=== PATIENT | male | born 1930 | race Hispanic/Latino ===

== ENCOUNTER 2017-04-06 11:43 | Outpatient (CLI) | payer MEDICARE ==
[2017-04-06 12:38] LABS: BUN/Creatinine Ratio 19.28; Calcium 8.8 mg/dL (8.4-10.2); Chloride 103.5 mmol/L (98-107); Potassium 4.9 mmol/L (3.6-5.0)
[2017-04-06] MEDS ORDERED: NACL ONE (12:44)
--- NOTE | 2017-04-08 13:52 | Cat Scan Report ---
CTA NECK INDICATION: Angina pectoris. Occlusion and stenosis of left carotid artery. COMPARISON: None similar. FINDINGS: CTA neck performed utilizing IV contrast. Axial, sagittal, coronal and MIP reconstructions obtained. Patent aortic arch with atherosclerotic changes. Normal major branching pattern. Atherosclerotic changes with approximately 65-70% stenosis at the origin of the right subclavian artery origin as on axial series 2, images 20-25. Approximately 40-50% stenosis at the origin of left common carotid artery may also be present as on axial image 12. Diffuse remainder vascular atherosclerotic changes also seen. Patent bilateral common carotid arteries. Moderate to severe carotid bulb atherosclerotic calcifications noted bilaterally. RIGHT: Approximately 60% stenosis at the right carotid bulb. Mild atherosclerotic changes and narrowing along the right proximal ICA as well. Remainder ICA and ECA appear unremarkable. LEFT: Severe, complete occlusion at the carotid bulb just past the ECA origin noted. Proximal ICA occluded for approximately 2 cm craniocaudal extent with subsequent reconstitution, though remainder left ICA also demonstrates approximately 60-70% asymmetrically smaller caliber as compared to the right ICA. Patent bilateral vertebral arteries, though right predominantly continues as the basilar artery while the left vertebral artery tapers distally with its branches likely contributing to the cerebellar supply. Age-appropriate imaged intracranial appearance with ICA calcifications. Bilateral cataract surgery. A 5-6 mm leftward nasal septal spur and slight deviation. Small radiopaque dental fillings and few missing teeth noted. Mild cervical spine degenerative changes. Sternotomy wires. CONCLUSION: 1. Diffuse bilateral atherosclerotic changes, greatest about the carotid bulbs. Severe, complete occlusion of the left proximal ICA for approximately 2 cm craniocaudal segment from the carotid bulb noted with subsequent reconstitution distally, though with asymmetrically smaller caliber, as described. Approximately 50-60% stenosis on the right and along the right proximal ICA noted as well. 2. Various other findings, as above. I phoned the above results to Dr. Markham, 1:45 PM, 04/08/2017. Thank you for the opportunity to participate in this patient's care.
== END 2017-04-06 11:44 | disposition home or self-care (01) ==
LOC: CT 11:43
PROVIDERS: ATTEND Radiology Diagnostic Radiology
DX: I65.22 Occlusion and stenosis of left carotid artery (principal); N18.1 Chronic kidney disease, stage 1; I20.9 Angina pectoris, unspecified; I70.221 Atherosclerosis of native arteries of extremities with rest pain, right leg
CPT/HCPCS: 36415; 70498; 80048; Q9967

== ENCOUNTER 2017-05-20 05:58 | Inpatient (IN) | payer MEDICARE ==
[2017-05-13 13:40] LABS: Basophils % (Auto) 0.4 % (0.0-1.8); Eosinophils % (Auto) 2.1 % (0.0-4.3); Hematocrit 31.1 % (35.5-45.6); Hemoglobin 11.3 gm/dl (11.8-15.2); Mean Corpuscular HGB Conc 36 % (32-34); Mean Corpuscular Hemoglobin 32 pg (28-32); Mean Corpuscular Volume 88 fl (84-94); Platelet Count 195 K/mm3 (140-440); Red Blood Count 3.52 M/mm3 (3.65-5.03); Red Cell Distribution Width 13.9 % (13.2-15.2); White Blood Count 6.1 K/mm3 (4.5-11.0)
[2017-05-13 13:49] LABS: INR 1.06 (0.87-1.13)
[2017-05-13 13:52] LABS: BUN/Creatinine Ratio 17.64; Calcium 9.2 mg/dL (8.4-10.2); Chloride 103.8 mmol/L (98-107); Potassium 5.4 mmol/L (3.6-5.0)
[~2017-05-20 05:58] MED LIST: GELFOAM TP ONE; HEPARIN 10,000 UNITS/10 ML IV ONE; MARCAINE-EPI 0.5%-1:200,000 INFILTRATI ONE; NACL 0.9% 500 ML IV ONE; NACL 0.9% IV ONE; RIFADIN IV ONE; THROMBIN (BOVINE) TP ONE; XYLOCAINE 1% 20 mL INFILTRATI ONE
[2017-05-20] MEDS ORDERED: NACL 0.9% 1000 ML 1,000 ML IV SCH (06:00)
[2017-05-20] MEDS ORDERED: ANCEF/STERILE WATER 2 GM/20 ML 2 GM/20 ML SYRINGE IV NR (06:00)
[2017-05-20] MEDS ORDERED: NACL BACTERIOSTATIC INFILTRATI ONE (06:34)
[2017-05-20] MEDS ORDERED: HEPARIN 10,000 UNITS/10 ML ONE (07:17)
[2017-05-20] MEDS ORDERED: GELFOAM TP ONE ×2 (07:17→10:15)
[2017-05-20] MEDS ORDERED: MARCAINE-EPI 0.5%-1:200,000 INFILTRATI ONE ×2 (07:17→11:00)
[2017-05-20] MEDS ORDERED: NACL 0.45% 500 ML IV ONE (07:18)
[2017-05-20] MEDS ORDERED: NACL ONE (07:18)
[2017-05-20] MEDS ORDERED: PAPAVERINE ONE (07:19)
[2017-05-20] MEDS ORDERED: NITROGLYCERIN SYRINGE 0 ML ONE (07:19)
[2017-05-20] MEDS ORDERED: PROTAMINE SULFATE ONE ×2 (07:20→11:42)
[2017-05-20] MEDS ORDERED: RIFADIN ONE ×2 (07:21→07:22)
[2017-05-20] MEDS ORDERED: THROMBIN (BOVINE) TP ONE ×2 (07:22→10:15)
[2017-05-20] MEDS ORDERED: XYLOCAINE 1% 20 mL ONE (07:23)
[2017-05-20] MEDS ORDERED: XYLOCAINE MPF 2% ONE (07:24)
[2017-05-20] MEDS ORDERED: SUBLIMAZE ONE ×2 (07:24→08:55)
[2017-05-20] MEDS ORDERED: ZEMURON IV ONE (07:24)
[2017-05-20] MEDS ORDERED: XYLOCAINE 1% MPF 5 mL ONE (07:24)
[2017-05-20] MEDS ORDERED: DIPRIVAN 10 MG/ML IV ONE (07:26)
[2017-05-20] MEDS ORDERED: DILAUDID IV PRN (07:28)
[2017-05-20] MEDS ORDERED: PEPCID PO NR (07:28)
[2017-05-20] MEDS ORDERED: VERSED IV NR (07:28)
--- NOTE | 2017-05-20 07:29 | Anesthesia Consultation ---
Anesthesia Consult and Med Hx Date of service: 05/20/17 - Airway Anesthetic Teeth Evaluation: Poor, Chipped (TOP FRONT) ROM Head & Neck: Adequate Mental/Hyoid Distance: Adequate Mallampati Class: Class II Intubation Access Assessment: Probably Good - Pulmonary Exam CTA: Yes - Cardiac Exam Cardiac Exam: RRR - Pre-Operative Health Status ASA Pre-Surgery Classification: ASA3 Proposed Anesthetic Plan: General - Pulmonary Hx Smoking: No Hx Asthma: No Hx Sleep Apnea: No - Cardiovascular System Hx Hypertension: Yes (x 10 yrs or more) Hx Coronary Artery Disease: Yes (CABG 1999) Hx Peripheral Vascular Disease: Yes (LEG STENTS) - Central Nervous System 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
--- NOTE | 2017-05-20 07:29 | Anesthesia Day of Surgery ---
Anesthesia Day of Surgery - Day of Surgery Patient Examined: Yes Patient H&P Reviewed: Yes Patient is NPO: Yes Beta Blockers: Yes Cardiac Clearance: Yes
[2017-05-20] MEDS ORDERED: XYLOCAINE 1% 20 mL INFILTRATI ONE (08:00)
[2017-05-20] MEDS ORDERED: ZOFRAN IV PRN (08:00)
[2017-05-20] MEDS ORDERED: ePHEDrine SULFATE ONE (08:08)
--- NOTE | 2017-05-20 08:45 | Admit Criteria Form ---
Admission Criteria Documentation: AMBULATORY SURGERY EXCEPTION CRITERIA Ambulatory Surgery Exception Criteria ( Place 'X' for any and all applicable criteria): Surgery or procedure performed on ambulatory basis may require inpatient stay for[A] ANY ONE of the following(1)(2)(3)(4)(5)(6)(7)(8)(9): [X] I. A preoperative situation, condition, or finding that warrants inpatient stay as indicated by ANY ONE of the following: [] a) Inpatient care needed because of severity of a disease or condition rather than the surgery (eg, severe cardiac or respiratory disease, severe infection) (15) (16 ) (17) (18) [] b) Emergent procedure (eg, angioplasty for acute ischemia)(19) [] c) Complex surgical approach or situation as indicated by ANY ONE of the following(3): [] i) Open approach needed instead of usual endoscopic, transcatheter, or other less invasive procedure [] ii) Difficult approach because of previous operation [] iii) Airway monitoring required after open neck procedures(20)(21) [] iv) Large mass requiring unusually extensive dissection [] v) Additional complicating feature requiring inpatient care (eg, drain management)(22(23): [X] d) Major surgery in a pt with high anesthetic risk as indicated by ANY ONE of the following (2)(3)(5)(7)(8): [X] i) ASA risk class III or higher (severe systemic disease impairing function) [D] [] ii) Advanced age (eg, older than 85 years)(14)(24) [] iii) Symptomatic heart failure(25) [] iv) Symptomatic asthma or COPD(8)(21) [] v) Morbid obesity with hemodynamic or respiratory problems(20)( 21)(26)(27) [] vi) Obstructive sleep apnea(20)(21) [] vii) Former premature infants who are younger than 60 weeks [] viii) High risk for severe postoperative abnormalities (eg, severe postoperative hypocalcemia after parathyroidectomy for severe hyperparathyroidism)(27)( 28) [] ix) Unstable angina(25) [] e) Drug-related risk requiring inpatient stay as indicated by ANY ONE of the following(5)(10)(14)(32)(33) [] i) Procedure requires discontinuing drugs or other therapy (eg , antiarrhythmic medication, antiseizure medication), which necessitates inpatient observation or treatment.(18)(31) [] ii) Major surgery and high risk drug use as indicated by ANY ONE of the following: [] 1) Active abuse of cocaine or similar drug [] 2) Monoamine oxidase inhibitor use [] 3) Other drug identified as posing risk [] f) Inadequate outpatient care situation as indicated by ANY ONE of the following(5)(10)(14)(32)(33) [] i) Patient lives remote from medical facility and procedure has urgent complication potential, and temporary nearby residence cannot be arranged [] ii) Patient will have postprocedure incapacitation and inadequate assistance at home, or alternative level of care cannot be arranged. [] iii) Patient will have long general anesthesia or procedure side effect resolution time, and competent person to stay with patient on first postoperative night at home or alternative level of care cannot be arranged. []iv) Other inadequate outpatient situation that cannot be handled by other means [] II. A perioperative event, condition, or finding that warrants inpatient stay as indicated by ANY ONE of the following (1)(2)(3): [] a) Inadequate physiologic recovery: cardiovascular, respiratory, or hemodynamic status not normal or near preoperative baseline(18) [] b) Hemodynamic instability [] c) Patient not alert with near normal or baseline mental status [] d) Temperature not normal or as expected and not appropriate for outpatient treatment of condition [] e) Ambulatory or appropriate activity level status not yet achieved post procedure [E](34)(35)(36) [] f) Operative site not appropriate (eg, unexpected or excessive drainage or bleeding) [] g) Postoperative effects not resolved or adequately managed (eg, significant pain or vomiting not appropriate for outpatient or next level of care)(10)(12) [] h) Complicating features requiring inpatient care as indicated by ANY ONE of the following(37): [] i) Severe complications of procedure (eg, bowel injury, airway compromise, vascular injury,severe hemorrhage) [] ii) Extensive (eg, dissection far beyond usual scope of procedure ) or prolonged (eg, 120 minutes beyond usual) surgery needed requiring inpatient postoperative care [] iii) Conversion to an open or complex procedure that requires inpatient care (eg, open vs laparoscopic cholecystectomy, abdominal vs vaginal hysterectomy)(38) [] iv) Comorbid condition or test result identified during or post procedure that requires inpatient care (7) [] v) Malignant hyperthermia(30) [] vi) Other complicating feature requiring inpatient care(22)(23) Inpatient stay may be needed until ALL of the following are present (1)(2)(3)(4) (5)(6)(10)(14)(33)(40): []a) Physiologic recovery: cardiovascular, respiratory, and hemodynamic status normal or near preoperative baseline []b) Hemodynamic stability []c) Patient alert, with near normal or baseline mental status []d) Temperature appropriate: patient afebrile or temperature appropriate for outpt treatment of condition []e) Activity level appropriate: ambulatory or appropriate activity level post procedure []f) Operative site appropriate as indicated by ALL of the following: []i) Site dry or with expected drainage []ii) Any blood noted is as expected for procedure. []g) Postoperative effects resolved or managed as indicated by ALL of the following: []i) Pain management appropriate for outpatient (or next level of) care(10) []ii) Minimal nausea and vomiting: if present, successfully treated with oral medication(12) []iii) Headache, dizziness, or drowsiness (if present) are mild. []h) Voiding status acceptable as indicated by ANY ONE of the following: []i) Voiding spontaneously []ii) No voiding but instructions given for follow-up in 6 to 8 hours []iii) Urinary catheter in place, and instructions given for follow-up []i) Complicating features requiring inpatient care manageable at a lower level of care(37) []j) Comorbid conditions manageable at a lower level of care(37) The original [employer] content created by [employer] has been revised. The portions of the content which have been revised are identified through the use of italic text or in bold, and [facility] [employer] has neither reviewed nor approved the modified material. All other unmodified content is copyright [employer]. Please see references footnoted in the original [employer] edition 2016 Admission Criteria Met: Yes
[2017-05-20] MEDS ORDERED: HEPARIN 10,000 UNITS/10 ML IV ONE (09:21)
[2017-05-20] MEDS ORDERED: NACL 0.9% 500 ML IV ONE (09:21)
[2017-05-20] MEDS ORDERED: NACL 0.9% IV ONE (09:54)
[2017-05-20] MEDS ORDERED: RIFADIN IV ONE (09:54)
[2017-05-20] MEDS ORDERED: NACL 0.9% 1000 ML 1,000 ML ONE ×2 (10:47→11:01)
[2017-05-20] MEDS ORDERED: NEO SYNEPHRINE/NS Syringe(OR USE) IV ONE (11:00)
[2017-05-20] MEDS ORDERED: DECADRON ONE (11:01)
[2017-05-20] MEDS ORDERED: ZOFRAN ONE (11:01)
[2017-05-20] MEDS ORDERED: NORCO 5/325 PO PRN (11:19)
[2017-05-20] MEDS ORDERED: D50W (25GM) IV PRN (11:19)
[2017-05-20] MEDS ORDERED: MORPHINE IV PRN ×2 (11:19)
--- NOTE | 2017-05-20 11:26 | Operative Report ---
Operative Report Operative Report: Date of procedure: 05/20/2017 Pre-operative diagnosis: Severe left carotid artery stenosis Post-operative diagnosis: Same Procedure name(s): 1. Left carotid endarterectomy with Dacron patch closure 2.completion duplex ultrasound Surgeon: Mauro Cyr MD Commercial Relationship Manager: [NOÉ Tillman] Anesthesia: Gen. with endotracheal tube EBL: [<100 mL] Operative indication: Severe left carotid artery stenosis. Findings: Severe left carotid artery stenosis. Procedure: The patient was placed on the table in the supine position. Appropriate anesthesia was given. The area of the neck was prepped with ChloraPrep solution and draped in usual sterile fashion. A linear incision was made along the anterior border of the sternocleidomastoid muscle. Dissection was carried out to identify the common carotid artery, external carotid artery, and the internal carotid artery. The plaque extended distally into the internal carotid artery for several centimeters necessitating exposure of the internal carotid artery high up in the neck. These vessels were surrounded with vessel loops. All nerve structures were spared. The patient was given 3000 units of intravenous heparin and 3 minutes were allowed to pass after the heparin was given. The systolic blood pressure was maintained at greater than 130 mm of mercury throughout the procedure. The internal carotid artery, the common carotid artery, and external carotid arteries were occluded. An arteriotomy was made in the common carotid artery and extended into the internal carotid artery. Backbleeding was checked from the internal carotid artery and found to be pulsatile. No shunt was placed. Standard endarterectomy technique was used to remove the plaque from the base of the internal carotid artery, the common carotid artery, and the external carotid artery. Meticulous care was taken to remove all residual debris from the artery. The plaque was noted to be friable with evidence of subacute hemorrhage. The plaque was extensive and extended all the way from the common carotid artery up to about 3 or more centimeters into the internal carotid artery. The plaque tapered reasonably into the distal internal carotid artery. There was a slight bit of "step" in the plaque which was tacked with a 70 proline. A 70 proline was also used to tack the more proximal portion of the distal plaque in the mid internal carotid artery. A Dacron patch was selected and tailored appropriately. The patch was sewn in using 6-0 Prolene suture. Prior to completion, the vessel was flushed and vented to remove any air or debris from the lumen. The patch was completed. Flow was started first into the external carotid artery and then into the internal carotid artery. Hemostasis was obtained. A completion duplex ultrasound was done. Flow velocities in the internal carotid artery were appropriate. However, at the common carotid artery endpoint of the endarterectomy there appeared to be a small frond of mobile residual plaque. The common internal and external carotid arteries were reoccluded. The patient was given an additional thousand units of intravenous heparin. The patch was opened on its proximal aspect and inspection was done of the common carotid artery at this point. There was a area where a small frond was seen which was likely that that had been seen on the ultrasound. It was tacked against the wall using a 60 proline and a small amount of debridement was done. Closure was done of the patch. Prior to closing the patch all vessels were flushed and vented to remove any air or debris. The patch was closed completely and then flow started first to the external length and the internal carotid artery without difficulty. Repeat duplex imaging at the common carotid artery revealed resolution of the mobile plaque. Flow velocities were unchanged in the internal carotid artery and there was no evidence of irregularity elsewhere in the artery. Completion of hemostasis was achieved. The wound was infiltrated with half percent Marcaine with epinephrine. Closure was done with 3-0 Vicryl on the platysma. The skin was closed with 4-0 subcuticular PDS suture. Dermabond was applied to the wound. Upon awakening, the patient was able to move all 4 extremities to command. The patient was taken from the operating room to the recovery room in stable condition. Sponge, needle, and instrument counts were reported as correct. The patient tolerated the procedure well.
[2017-05-20] MEDS ORDERED: NIPRIDE 50 MG in D5W 248 ML IV SCH (12:00)
[2017-05-20] MEDS ORDERED: INTROPIN DRIP 800 MG/D5W 250 ML 800 MG/250 ML BAG IV SCH (12:00)
--- NOTE | 2017-05-20 12:50 | Post Anesthesia Evaluation ---
- Post Anesthesia Evaluation Patient Participated: Yes Airway Patent: Yes Stable Respiratory Function: Yes Nausea/Vomiting: No Temp > 96.8F: Yes Pain Manageable: Yes Adequeate Hydration: Yes Anesthesia Complications: No Block Receding Appropriately: Not Applicable Patient on Ventilator: No
[2017-05-20] MEDS: ANCEF/NS 1 GM/50 ML 1 GM/50 ML BAG IV SCH ×2 (13:41→19:55)
[2017-05-20] MEDS: NACL 0.9% 1000 ML 1,000 ML IV SCH ×2 (13:56→23:15)
--- NOTE | 2017-05-20 14:12 | Consultation ---
History of Present Illness - Reason for Consult Consult date: 05/20/17 Post-Op ICU management Requesting physician: FIDEL REYNA - History of Present Illness Transitioned to ICU for post-op management, stable Past History Past Medical History: diabetes, hypertension, other (BPH) Medications and Allergies Allergies Allergy/AdvReac Type Severity Reaction Status Date / Time No Known Allergies Allergy Unverified 05/13/17 11:27 Home Medications Medication Instructions Recorded Confirmed Last Taken Type Aspirin [Adult Low Dose Aspirin EC] 81 mg PO QDAY 03/11/16 05/14/17 05/19/17 History Lisinopril [Zestril] 40 mg PO QDAY 03/11/16 05/14/17 05/20/17 04:40 History Terazosin(Nf) [Hytrin (Nf)] 1 mg PO QHS 03/11/16 05/14/17 05/19/17 History amLODIPine [Norvasc] 10 mg PO DAILY 03/11/16 05/14/17 05/19/17 History metFORMIN [Glucophage] 500 mg PO BID 03/11/16 05/14/17 05/19/17 History AtorvaSTATin [Lipitor] 40 mg PO QHS 05/14/17 05/14/17 05/19/17 History Clopidogrel Bisulfate [Clopidogrel] 75 mg PO DAILY 05/14/17 05/14/17 05/19/17 History Donepezil HCl [Donepezil HCl] 10 mg PO DAILY 05/14/17 05/14/17 05/19/17 History Metoprolol [Lopressor] 12.5 mg PO BID 05/14/17 05/14/17 05/20/17 04:40 History Omeprazole 40 mg PO DAILY 05/14/17 05/14/17 05/19/17 History HYDROcodone/APAP 5-325 [[place] 1 each PO Q4HR PRN #40 tablet 05/20/17 Unknown Rx 5/325] Active Meds: Active Medications Acetaminophen/Hydrocodone Bitart ([place] 5/325) 1 each PO Q6H PRN PRN Reason: Pain, Moderate (4-6) Amlodipine Besylate (Norvasc) 10 mg PO DAILY [facility] Aspirin (Halfprin Ec) 81 mg PO QDAY [facility] Atorvastatin Calcium (Lipitor) 40 mg PO QHS [facility] Clopidogrel Bisulfate (Plavix) 75 mg PO DAILY [facility] Dextrose (D50w (25gm)) 50 ml IV PRN PRN PRN Reason: Hypoglycemia Docusate Sodium (Colace) 100 mg PO BID [facility] Donepezil HCl (Aricept) 10 mg PO DAILY [facility] Cefazolin Sodium (Ancef/Ns 1 Gm/50 Ml) 1 gm in 50 mls @ 100 mls/hr IV Q8H AIMEE Stop: 05/20/17 20:29 Last Admin: 05/20/17 13:41 Dose: 100 mls/hr Dopamine HCl/Dextrose (Intropin Drip 800 Mg/D5w 250 Ml) 800 mg in 250 mls @ 7.524 mls/hr IV TITR AIMEE; 5 MCG/KG/MIN PRN Reason: Protocol Last Admin: 05/20/17 13:42 Dose: 5 mcg/kg/min, 7.524 mls/hr Sodium Nitroprusside 50 mg/ (Dextrose) 250 mls @ 6.02 mls/hr IV TITR AIMEE; 0.25 MCG/KG/MIN PRN Reason: Protocol Sodium Chloride (Nacl 0.9% 1000 Ml) 1,000 mls @ 100 mls/hr IV DIRECT AIMEE Last Admin: 05/20/17 13:56 Dose: 100 mls/hr Insulin Aspart (Novolog) 0 units SUB-Q ACHS AIMEE PRN Reason: Protocol Lisinopril (Zestril) 40 mg PO QDAY [facility] Metformin HCl (Glucophage) 500 mg PO BID [facility] Metoprolol Tartrate (Lopressor) 12.5 mg PO BID [facility] Miscellaneous Medication (Terazosin(Nf)) 1 mg PO QHS [facility] Morphine Sulfate (Morphine) 2 mg IV Q4H PRN PRN Reason: Pain, Moderate (4-6) Morphine Sulfate (Morphine) 4 mg IV Q4H PRN PRN Reason: Pain , Severe (7-10) Pantoprazole Sodium (Protonix) 40 mg PO DAILY [facility] Exam - Constitutional Vitals: Temp Pulse Resp BP Pulse Ox 97.6 F 73 16 144/61 100 05/20/17 11:21 05/20/17 11:21 05/20/17 11:21 05/20/17 11:21 05/20/17 11:21 General appearance: Present: no acute distress - EENT Eyes: Present: PERRL, EOM intact ENT: hearing intact - Respiratory Respiratory effort: normal Respiratory: bilateral: CTA - Cardiovascular Rhythm: regular Heart Sounds: Present: S1 & S2 - Extremities Extremities: no ischemia - Abdominal General gastrointestinal: Present: soft, non-tender Results - Labs CBC & Chem 7: 05/13/17 13:10 05/13/17 13:10 Labs: Abnormal lab results 05/20/17 05/20/17 Range/Units 06:53 11:44 POC Glucose 173 H 229 H (70-105) Assessment and Plan 87 y/o male status post Left carotid endarterectomy with Dacron patch closure 1. Post-op orders per surgery 2. Restart home meds 3. DVT prophylaxis.
[2017-05-20] MEDS: NOVOLOG SUB-Q SCH ×3 (17:31→21:27)
[2017-05-20] MEDS: COLACE PO SCH (21:24)
[2017-05-20] MEDS: GLUCOPHAGE PO SCH (21:25)
[2017-05-20] MEDS: LOPRESSOR PO SCH (21:25)
[2017-05-20] MEDS ORDERED: TERAZOSIN 1 MG PO SCH (22:00)
[2017-05-21] MEDS: NOVOLOG SUB-Q SCH ×4 (08:49→12:40)
[2017-05-21] MEDS ORDERED: NON-FORMULARY (Omeprazole [Omeprazole] 40 MG) PO SCH (10:00)
[2017-05-21] MEDS ORDERED: ARICEPT PO SCH (10:00)
[2017-05-21] MEDS ORDERED: PLAVIX PO SCH (10:00)
[2017-05-21] MEDS ORDERED: HALFPRIN EC PO SCH (10:00)
[2017-05-21] MEDS ORDERED: PROTONIX PO SCH (10:00)
[2017-05-21] MEDS ORDERED: NORVASC PO SCH (10:00)
[2017-05-21] MEDS ORDERED: ZESTRIL PO SCH (10:00)
[2017-05-21] MEDS: GLUCOPHAGE PO SCH (10:27)
[2017-05-21] MEDS: COLACE PO SCH (10:28)
[2017-05-21] MEDS: LOPRESSOR PO SCH (10:31)
--- NOTE | 2017-05-21 10:32 | Short Stay Summary ---
Short Stay Documentation - History H&P: obtained from office - Allergies and Medications Current Medications: Allergies No Known Allergies Allergy (Unverified 05/13/17 11:27) Home Medications Medication Instructions Recorded Confirmed Last Taken Type Aspirin [Adult Low Dose Aspirin EC] 81 mg PO QDAY 03/11/16 05/14/17 05/19/17 History Lisinopril [Zestril] 40 mg PO QDAY 03/11/16 05/14/17 05/20/17 04:40 History Terazosin(Nf) [Hytrin (Nf)] 1 mg PO QHS 03/11/16 05/14/17 05/19/17 History amLODIPine [Norvasc] 10 mg PO DAILY 03/11/16 05/14/17 05/19/17 History metFORMIN [Glucophage] 500 mg PO BID 03/11/16 05/14/17 05/19/17 History AtorvaSTATin [Lipitor] 40 mg PO QHS 05/14/17 05/14/17 05/19/17 History Clopidogrel Bisulfate [Clopidogrel] 75 mg PO DAILY 05/14/17 05/14/17 05/19/17 History Donepezil HCl [Donepezil HCl] 10 mg PO DAILY 05/14/17 05/14/17 05/19/17 History Metoprolol [Lopressor] 12.5 mg PO BID 05/14/17 05/14/17 05/20/17 04:40 History Omeprazole 40 mg PO DAILY 05/14/17 05/14/17 05/19/17 History HYDROcodone/APAP 5-325 [[place] 1 each PO Q4HR PRN #40 tablet 05/20/17 Unknown Rx 5/325] Active Medications Acetaminophen/Hydrocodone Bitart ([place] 5/325) 1 each PO Q6H PRN PRN Reason: Pain, Moderate (4-6) Last Admin: 05/20/17 19:44 Dose: 1 each Amlodipine Besylate (Norvasc) 10 mg PO DAILY [facility] Aspirin (Halfprin Ec) 81 mg PO QDAY [facility] Atorvastatin Calcium (Lipitor) 40 mg PO QHS [facility] Last Admin: 05/20/17 21:24 Dose: 40 mg Clopidogrel Bisulfate (Plavix) 75 mg PO DAILY [facility] Dextrose (D50w (25gm)) 50 ml IV PRN PRN PRN Reason: Hypoglycemia Docusate Sodium (Colace) 100 mg PO BID [facility] Last Admin: 05/20/17 21:24 Dose: 100 mg Donepezil HCl (Aricept) 10 mg PO DAILY [facility] Dopamine HCl/Dextrose (Intropin Drip 800 Mg/D5w 250 Ml) 800 mg in 250 mls @ 7.524 mls/hr IV TITR AIMEE; 5 MCG/KG/MIN PRN Reason: Protocol Sodium Nitroprusside 50 mg/ (Dextrose) 250 mls @ 6.02 mls/hr IV TITR AIMEE; 0.25 MCG/KG/MIN PRN Reason: Protocol Sodium Chloride (Nacl 0.9% 1000 Ml) 1,000 mls @ 100 mls/hr IV DIRECT [facility] Last Admin: 05/20/17 23:15 Dose: 100 mls/hr Insulin Aspart (Novolog) 0 units SUB-Q ACHS [facility] PRN Reason: Protocol Last Admin: 05/21/17 08:50 Dose: 1 units Lisinopril (Zestril) 40 mg PO QDAY [facility] Metformin HCl (Glucophage) 500 mg PO BID [facility] Last Admin: 05/20/17 21:25 Dose: 500 mg Metoprolol Tartrate (Lopressor) 12.5 mg PO BID [facility] Last Admin: 05/20/17 21:25 Dose: 12.5 mg Miscellaneous Medication (Terazosin(Nf)) 1 mg PO QHS [facility] Morphine Sulfate (Morphine) 2 mg IV Q4H PRN PRN Reason: Pain, Moderate (4-6) Last Admin: 05/20/17 19:44 Dose: 2 mg Morphine Sulfate (Morphine) 4 mg IV Q4H PRN PRN Reason: Pain , Severe (7-10) Pantoprazole Sodium (Protonix) 40 mg PO DAILY [facility] - Brief post op/procedure progress note Date of procedure: 05/21/17 Pre-op diagnosis: ESRD Post-op diagnosis: same Procedure: Left Upper extremity basilic vein to brachial artery AV fistula at the elbow by vein transposition Anesthesia: MAC, local Findings: Excellent thrill at the end of the procedure. 2+ left radial pulse at the end of the procedure. Surgeon: FIDEL REYNA Electrical Drafter: JANET KAHN Estimated blood loss: minimal Pathology: none Condition: stable - Hospital course Hospital course: Benign - Disposition Condition at discharge: Good Disposition: DC-01 TO HOME OR SELFCARE Short Stay Discharge Plan Activity: advance as tolerated Diet: regular Wound: per your surgeon's advice Follow up with: FIDEL REYNA MD [Staff Physician] - 14 Days Prescriptions: HYDROcodone/APAP 5-325 [[place] 5/325] 1 each PO Q4HR PRN #40 tablet PRN Reason: Pain
[2017-05-21 11:39] VITALS: BP 163/61
--- NOTE | 2017-05-21 13:11 | Progress Note ---
Assessment and Plan 87 y/o male status post Left carotid endarterectomy with Dacron patch closure 1. Agree with discharge/transfer Subjective Date of service: 05/21/17 Interval history: No acute events overnight. Per discussion on rounds, discharging today. Objective - Constitutional Vitals: Vital Signs - 12hr 05/21/17 05/21/17 05/21/17 02:01 03:00 04:00 Temperature Pulse Rate 55 L 56 L Pulse Rate [ 52 L From Monitor] Respiratory 18 18 16 Rate Blood Pressure 147/58 146/57 O2 Sat by Pulse 96 95 98 Oximetry 05/21/17 05/21/17 05/21/17 04:01 05:00 06:01 Temperature Pulse Rate 53 L 54 L 53 L Pulse Rate [ From Monitor] Respiratory 16 16 16 Rate Blood Pressure 157/58 155/57 155/58 O2 Sat by Pulse 94 95 94 Oximetry 05/21/17 05/21/17 05/21/17 07:00 08:00 08:01 Temperature 97.9 F Pulse Rate 60 53 L Pulse Rate [ From Monitor] Respiratory 15 17 Rate Blood Pressure 151/64 142/55 O2 Sat by Pulse 96 92 Oximetry 05/21/17 05/21/17 05/21/17 08:28 09:00 10:00 Temperature Pulse Rate 54 L 57 L Pulse Rate [ From Monitor] Respiratory 14 10 L Rate Blood Pressure 153/59 162/57 O2 Sat by Pulse 94 96 97 Oximetry 05/21/17 05/21/17 05/21/17 10:26 10:31 11:00 Temperature Pulse Rate 53 L 53 L 57 L Pulse Rate [ From Monitor] Respiratory 17 Rate Blood Pressure 162/57 160/57 163/61 O2 Sat by Pulse 96 Oximetry 05/21/17 12:00 Temperature 97.7 F Pulse Rate Pulse Rate [ From Monitor] Respiratory Rate Blood Pressure O2 Sat by Pulse Oximetry General appearance: Present: no acute distress - Labs CBC & Chem 7: 05/13/17 13:10 05/13/17 13:10 Labs: Abnormal lab results 05/20/17 05/20/17 05/21/17 Range/Units 17:18 21:07 07:29 POC Glucose 234 H 200 H 160 H (70-105) 05/21/17 Range/Units 12:10 POC Glucose 203 H (70-105)
--- NOTE | 2017-05-21 15:18 | Progress Note ---
Assessment and Plan Pt s/p L CEA. Eval'd earlier today. Doing well post-op Activity increased and tolerated. C/o throat irritation, but denies difficulty swallowing. Okay to d/c home after lunch if no difficulties. D/c instructions given to the pt and daughter by Dr Cyr at the bedside. Pt to resume home meds including ASA and Plavix. Pain rx given (if needed). F/u in 2 wks. - Patient Problems (1) Carotid stenosis Status: Acute Qualifiers: Laterality: L Subjective Date of service: 05/21/17 Interval history: Pt eval'd earlier today without complaint other than mild throat irritation. Objective - Constitutional Vitals: Vital Signs - 12hr 05/21/17 05/21/17 05/21/17 04:00 04:01 05:00 Temperature Pulse Rate 53 L 54 L Pulse Rate [ 52 L From Monitor] Respiratory 16 16 16 Rate Blood Pressure 157/58 155/57 O2 Sat by Pulse 98 94 95 Oximetry 05/21/17 05/21/17 05/21/17 06:01 07:00 08:00 Temperature Pulse Rate 53 L 60 53 L Pulse Rate [ From Monitor] Respiratory 16 15 17 Rate Blood Pressure 155/58 151/64 142/55 O2 Sat by Pulse 94 96 92 Oximetry 05/21/17 05/21/17 05/21/17 08:01 08:28 09:00 Temperature 97.9 F Pulse Rate 54 L Pulse Rate [ From Monitor] Respiratory 14 Rate Blood Pressure 153/59 O2 Sat by Pulse 94 96 Oximetry 05/21/17 05/21/17 05/21/17 10:00 10:26 10:31 Temperature Pulse Rate 57 L 53 L 53 L Pulse Rate [ From Monitor] Respiratory 10 L Rate Blood Pressure 162/57 162/57 160/57 O2 Sat by Pulse 97 Oximetry 05/21/17 05/21/17 05/21/17 11:00 12:00 12:01 Temperature 97.7 F Pulse Rate 57 L 56 L Pulse Rate [ From Monitor] Respiratory 17 12 Rate Blood Pressure 163/61 142/63 O2 Sat by Pulse 96 98 Oximetry 05/21/17 13:01 Temperature Pulse Rate 57 L Pulse Rate [ From Monitor] Respiratory 12 Rate Blood Pressure 163/61 O2 Sat by Pulse 98 Oximetry General appearance: Present: no acute distress - EENT Eyes: EOM intact ENT: hearing intact - Neck Neck: supple (incision intact without erythema or drainage) - Respiratory Respiratory effort: normal (unlabored at rest on room air) Extremities: normal temperature - Neurologic Neurologic: no focal deficits, moves all extremities (information officer strength equal and adequate. ), other (tongue midline) - Psychiatric Psychiatric: appropriate mood/affect, cooperative - Labs CBC & Chem 7: 05/13/17 13:10 05/13/17 13:10 Labs: Abnormal lab results 05/20/17 05/20/17 05/21/17 Range/Units 17:18 21:07 07:29 POC Glucose 234 H 200 H 160 H (70-105) 05/21/17 Range/Units 12:10 POC Glucose 203 H (70-105)
--- NOTE | 2017-05-21 15:27 | Short Stay Summary ---
Short Stay Documentation Date of service: 05/21/17 - History H&P: obtained from office - Allergies and Medications Current Medications: Allergies No Known Allergies Allergy (Unverified 05/13/17 11:27) Home Medications Medication Instructions Recorded Confirmed Last Taken Type Aspirin [Adult Low Dose Aspirin EC] 81 mg PO QDAY 03/11/16 05/14/17 05/19/17 History Lisinopril [Zestril] 40 mg PO QDAY 03/11/16 05/14/17 05/20/17 04:40 History Terazosin(Nf) [Hytrin (Nf)] 1 mg PO QHS 03/11/16 05/14/17 05/19/17 History amLODIPine [Norvasc] 10 mg PO DAILY 03/11/16 05/14/17 05/19/17 History metFORMIN [Glucophage] 500 mg PO BID 03/11/16 05/14/17 05/19/17 History AtorvaSTATin [Lipitor] 40 mg PO QHS 05/14/17 05/14/17 05/19/17 History Clopidogrel Bisulfate [Clopidogrel] 75 mg PO DAILY 05/14/17 05/14/17 05/19/17 History Donepezil HCl [Donepezil HCl] 10 mg PO DAILY 05/14/17 05/14/17 05/19/17 History Metoprolol [Lopressor] 12.5 mg PO BID 05/14/17 05/14/17 05/20/17 04:40 History Omeprazole 40 mg PO DAILY 05/14/17 05/14/17 05/19/17 History HYDROcodone/APAP 5-325 [[place] 1 each PO Q4HR PRN #40 tablet 05/20/17 Unknown Rx 5/325] - Physical exam Extremities: normal temperature - Brief post op/procedure progress note Procedure: Operative Report Operative Report: Date of procedure: 05/20/2017 Pre-operative diagnosis: Severe left carotid artery stenosis Post-operative diagnosis: Same Procedure name(s): 1. Left carotid endarterectomy with Dacron patch closure 2.completion duplex ultrasound Surgeon: Fidel Reyna MD Actuarial Science Professor: [NOÉ Tillman] Anesthesia: Gen. with endotracheal tube EBL: [<100 mL] Operative indication: Severe left carotid artery stenosis. Findings: Severe left carotid artery stenosis. - Disposition Condition at discharge: Good Disposition: DC-01 TO HOME OR SELFCARE - Discharge Diagnoses (1) Carotid stenosis Status: Acute Qualifiers: Laterality: L Short Stay Discharge Plan Activity: advance as tolerated Weight Bearing Status: Weight Bear as Tolerated Diet: regular Wound: keep clean and dry Follow up with: FIDEL REYNA MD [Staff Physician] - 14 Days Prescriptions: HYDROcodone/APAP 5-325 [[place] 5/325] 1 each PO Q4HR PRN #40 tablet PRN Reason: Pain
--- NOTE | 2017-05-22 10:29 | Vascular Lab Report ---
INTRAOPERATIVE CAROTID ARTERY DUPLEX Reason for exam: Completion of carotid endarterectomy Comments on the left: The common and internal carotid arteries are patent without evidence of intraluminal irregularities. Flow velocities appear to be appropriate. No obvious technical defects at the endarterectomy site appreciated. Impression: No obvious technical imperfections at the endarterectomy site.
== END 2017-05-21 13:55 | disposition home or self-care (01) | DRG 39 ==
LOC: 3A 05:58 → EDBD 05:58 → CC1 11:32
PROVIDERS: ADMIT Surgery Vascular Surgery; ATTEND Surgery Vascular Surgery
PROC: 03CL0ZZ Extirpation of Matter from Left Internal Carotid Artery, Open Approach (ICD-10-PCS; principal; 2017-05-20)
PROC: 03CJ0ZZ Extirpation of Matter from Left Common Carotid Artery, Open Approach (ICD-10-PCS; 2017-05-20)
PROC: 03CN0ZZ Extirpation of Matter from Left External Carotid Artery, Open Approach (ICD-10-PCS; 2017-05-20)
PROC: 03UL0JZ Supplement Left Internal Carotid Artery with Synthetic Substitute, Open Approach (ICD-10-PCS; 2017-05-20)
DX: I65.22 Occlusion and stenosis of left carotid artery (principal); I10 Essential (primary) hypertension; N40.0 Benign prostatic hyperplasia without lower urinary tract symptoms; E11.8 Type 2 diabetes mellitus with unspecified complications
CPT/HCPCS: 36415; 36620; 80048; 82962; 85025; 85610; 88304; 88311; 94760; A4649; A9270-GY; C1768; J0690; J1100; J1265; J1644; J1815; J2250; J2270; J2370; J2405; J2440; J2704; J2720; J3010; J3490; J7030; J7040